=== PATIENT | female | born 2000 | race Caucasian/White ===

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

== ENCOUNTER 2021-12-22 20:09 | Inpatient (IN) | payer OTHER ==
[2021-12-22] MEDS ORDERED: PROMETHAZINE HCL 25 MG/1 ML VIAL IVPUSH ONE (21:49)
[2021-12-22] MEDS ORDERED: BUTORPHANOL TARTRATE 2 MG/ML VIAL IVPUSH PRN (21:49)
[2021-12-22] MEDS ORDERED: AMPICILLIN SODIUM 2 GM VIAL ONE (21:50)
[2021-12-22] MEDS ORDERED: AMPICILLIN - 2 GM in SODIUM CHLORIDE 100 ML IVPB ONE (22:00)
[2021-12-22] MEDS ORDERED: DINOPROSTONE 10 MG VAGINAL SUPPOSITORY VG ONE (22:01)
[2021-12-22 22:10] VITALS: BMI 29.9
[2021-12-22] MEDS: DEXTROSE 5%-LACTATED RINGERS 1,000 ML IV SCH (22:25)
[2021-12-22 22:56] LABS: BASO % 0.5 % (0-2.0); EOS % 0.5 % (0-4.5); HEMOGLOBIN 10.1 GM/dL (10.7-15.3); LYMPH % 26.2 % (8-40); MCH 28.5 pg (25.7-33.7); MCHC 33.6 g/dl (32.0-36.0); MEAN CELL VOLUME 84.9 fl (80-96); MEAN PLT VOLUME 10.7 fl (7.5-11.1); MONO % 7.5 % (3.8-10.2); NEUT % 65.3 % (42.8-82.8); PLATELET COUNT 185 10^3/uL (134-434); RBC 3.54 M/mm3 (3.60-5.2); WHITE BLOOD COUNT 5.6 K/mm3 (4.0-10.0)
[2021-12-22 23:03] LABS: INR 1.02 (0.83-1.09); PROTHROMBIN TIME (PATIENT) 11.7 SEC (9.7-13.0)
[2021-12-22 23:09] LABS: METHADONE, UR NEGATIVE (NEGATIVE)
[2021-12-22 23:10] LABS: COCAINE, UR NEGATIVE (NEGATIVE); OPIATES, URI NEGATIVE (NEGATIVE); PHENCYCLIDINE,URINE NEGATIVE (NEGATIVE); URINE BARBITURATES NEGATIVE (NEGATIVE)
[2021-12-22 23:13] LABS: URINE AMPHETAMINES NEGATIVE (NEGATIVE); URINE BENZODIAZEPINES NEGATIVE (NEGATIVE)
[2021-12-22 23:17] LABS: CALCIUM 8.3 mg/dL (8.5-10.1)
[2021-12-22 23:18] LABS: ALBUMIN 2.4 g/dl (3.4-5.0); BLOOD UREA NITROGEN 11.5 mg/dL (7-18)
[2021-12-22 23:21] LABS: CREATININE 0.5 mg/dL (0.55-1.3)
[2021-12-22 23:22] LABS: BILIRUBIN,TOTAL 0.1 mg/dL (0.2-1); TOT PROT 6.1 g/dl (6.4-8.2)
[2021-12-22 23:52] LABS: EPI CELLS >36 /uL (0-25.1); HYALINE CASTS 5 /uL (0-3.1); PH,URINE 8.5 (5.0-8.0); URINE APPEARANCE CLOUDY; URINE BILIRUBIN NEGATIVE (NEGATIVE); URINE COLOR YELLOW; URINE GLUCOSE (UA) NEGATIVE (NEGATIVE); URINE KETONE NEGATIVE (NEGATIVE); URINE LEUK ESTERASE NEGATIVE (NEGATIVE); URINE NITRITE NEGATIVE (NEGATIVE); URINE PROTEIN 1+ (NEGATIVE); URINE UROBILINOGEN 0.2 mg/dL (0.2-1.0); URINE WBC 19 /uL (0-25.8)
[2021-12-23] MEDS: AMPICILLIN - 1 GM in SODIUM CHLORIDE 100 ML IVPB SCH ×6 (02:55→22:35)
[2021-12-23] MEDS ORDERED: AMPICILLIN SODIUM 1 GM VIAL ONE ×6 (02:55→22:33)
[2021-12-23] MEDS: DEXTROSE 5%-LACTATED RINGERS 1,000 ML IV SCH ×2 (07:15→15:55)
[2021-12-23] MEDS ORDERED: OXYTOCIN 30 UNITS in 0.9% NS 30 UNIT/500 ML INFUS.BAG IVPB SCH (12:45)
[2021-12-23] MEDS ORDERED: BUTORPHANOL TARTRATE 2 MG/ML VIAL ONE (17:43)
[2021-12-23] MEDS ORDERED: PROMETHAZINE HCL 25 MG/1 ML VIAL ONE (17:43)
[2021-12-23 18:05] LABS: SYPHILIS W/ RPR CONF NON-REACTIVE (NONREACTIVE)
[2021-12-23 18:06] LABS: HEPATITIS B SURFACE AG MATERN NON-REACTIVE (NONREACTIVE)
[2021-12-23 18:43] LABS: HIV INTERPRETATION NEGATIVE (NEGATIVE)
[2021-12-24] MEDS ORDERED: LIDOCAINE HCL 1% PRESERVATIVE FREE - 30ML VIAL ONE (00:45)
[2021-12-24] MEDS ORDERED: OXYTOCIN 20 UNITS in 0.9% NS 20 UNIT/1,000 ML INFUS.BAG IV ONE (00:45)
[2021-12-24] MEDS: DEXTROSE 5%-LACTATED RINGERS 1,000 ML IV SCH (01:35)
[2021-12-24] MEDS ORDERED: ACETAMINOPHEN 325 MG TABLET (FP) PO PRN (03:54)
[2021-12-24] MEDS ORDERED: BISACODYL 10 MG SUPP.RECT RC PRN (03:54)
[2021-12-24] MEDS ORDERED: BENZOCAINE 20% 57 GM BOTTLE TP PRN (03:54)
[2021-12-24] MEDS ORDERED: WITCH HAZEL 50% (TUCKS) 40 PAD/JAR PAD TP PRN (03:54)
[2021-12-24] MEDS ORDERED: METHYLERGONOVINE MALEATE 0.2 MG/1 ML AMP IM PRN (03:54)
[2021-12-24] MEDS ORDERED: BENZOCAINE 28 GM HEMORRHOIDAL OINTMENT TP PRN (03:54)
[2021-12-24] MEDS ORDERED: oxyCODONE HCL 5 MG TABLET PO PRN (03:54)
[2021-12-24] MEDS ORDERED: OXYTOCIN 20 UNITS in 0.9% NS 20 UNIT/1,000 ML INFUS.BAG IV SCH (04:00)
[2021-12-24 04:42] LABS: CORD BASE EXCESS -5.5 mmol/L (0-2); CORD HCO3 20.5 mmHg (20-29); CORD PCO2 41.7 mmHg (30-78); CORD pH 7.309 (7.14-7.44)
[2021-12-24 04:44] LABS: CORD BASE EXCESS -7.4 mmol/L (0-2); CORD HCO3 17.7 mmHg (20-29); CORD pH 7.321 (7.14-7.44)
[2021-12-24] MEDS ORDERED: IBUPROFEN 600 MG TABLET (FP) PO ONE (05:15)
[2021-12-24] MEDS: IBUPROFEN 600 MG TABLET (FP) PO PRN (05:18)
[2021-12-24] MEDS: AMPICILLIN - 1 GM in SODIUM CHLORIDE 100 ML IVPB SCH ×2 (06:13→06:44)
[2021-12-24] MEDS: FERROUS SO4 325 MG TABLET (FP) PO SCH ×3 (11:24→17:07)
[2021-12-24] MEDS: PRENATAL VITAMINS W/ FOLIC ACID TABLET (FP) PO SCH (11:24)
[2021-12-25 08:35] LABS: BASO % 0.1 % (0-2.0); EOS % 0.6 % (0-4.5); HEMATOCRIT 28.1 % (32.4-45.2); HEMOGLOBIN 9.3 GM/dL (10.7-15.3); LYMPH % 10.9 % (8-40); MCH 28.2 pg (25.7-33.7); MCHC 32.9 g/dl (32.0-36.0); MEAN CELL VOLUME 85.6 fl (80-96); MEAN PLT VOLUME 10.5 fl (7.5-11.1); MONO % 6.9 % (3.8-10.2); NEUT % 81.5 % (42.8-82.8); PLATELET COUNT 153 10^3/uL (134-434); RBC 3.29 M/mm3 (3.60-5.2); WHITE BLOOD COUNT 11.5 K/mm3 (4.0-10.0)
[2021-12-25] MEDS: IBUPROFEN 600 MG TABLET (FP) PO PRN (08:37)
[2021-12-25] MEDS: FERROUS SO4 325 MG TABLET (FP) PO SCH ×3 (08:46→17:33)
[2021-12-25] MEDS: PRENATAL VITAMINS W/ FOLIC ACID TABLET (FP) PO SCH (10:19)
[2021-12-25] MEDS: AMPICILLIN - 1 GM in SODIUM CHLORIDE 100 ML IVPB SCH (19:43)
[2021-12-25] MEDS ORDERED: SENNOSIDES/DOCUSATE COMBO (SENNA PLUS) TABLET (UD) PO PRN (22:00)
[2021-12-26] MEDS: IBUPROFEN 600 MG TABLET (FP) PO PRN (00:38)
[2021-12-26] MEDS: FERROUS SO4 325 MG TABLET (FP) PO SCH ×2 (08:27→14:07)
[2021-12-26] MEDS: PRENATAL VITAMINS W/ FOLIC ACID TABLET (FP) PO SCH (10:34)
[2021-12-26 15:16] VITALS: BP 134/74; PULSE 80; TEMP 97.9
== END 2021-12-26 13:40 | disposition home or self-care (01) | DRG 560 ==
LOC: JDEL 20:09 → JLDR 21:25 → J3W 12-24 06:08
PROVIDERS: ADMIT Obstetrics & Gynecology; ATTEND Obstetrics & Gynecology
PROC: 3E0P7VZ Introduction of Hormone into Female Reproductive, Via Natural or Artificial Opening (ICD-10-PCS; 2021-12-23)
PROC: 10E0XZZ Delivery of Products of Conception, External Approach (ICD-10-PCS; principal; 2021-12-24)
PROC: 0W8NXZZ Division of Female Perineum, External Approach (ICD-10-PCS; 2021-12-24)
PROC: 0KQM0ZZ Repair Perineum Muscle, Open Approach (ICD-10-PCS; 2021-12-24)
DX: O42.12 Full-term premature rupture of membranes, onset of labor more than 24 hours following rupture (principal); O70.1 Second degree perineal laceration during delivery; Z3A.38 38 weeks gestation of pregnancy; Z37.0 Single live birth
CPT/HCPCS: 36415; 36600; 59409; 76819-TC; 80053; 80307; 81003; 82803; 85025; 85610; 85730; 86762; 86780; 86850; 86900; 86901; 87340; 87389; C9803-CS; U0003; U0005

== ENCOUNTER 2022-01-02 18:11 | Emergency (ER) | payer OTHER ==
[2022-01-02 18:52] VITALS: BP 101/66; RESP 14; TEMP 102; BMI 26.0
[2022-01-02] MEDS ORDERED: ACETAMINOPHEN 500 MG TABLET (FP) PO ONE (20:48)
[2022-01-02] MEDS ORDERED: ACETAMINOPHEN 500 MG TABLET (FP) ONE (20:53)
[2022-01-02 21:34] VITALS: PULSE 85
== END 2022-01-02 21:34 | disposition home or self-care (01) ==
LOC: JER 18:11
DX: J06.9 Acute upper respiratory infection, unspecified (principal)
CPT/HCPCS: 99283-25